=== PATIENT | male | born 1985 | race Caucasian/White ===

== ENCOUNTER 2017-06-17 18:20 | Emergency (ER) | payer OTHER, BC ==
[~2017-06-17] VITALS: Ht 182.9 cm; Wt 97.5 kg
[2017-06-17] MEDS ORDERED: CEPHALEXIN500 MG PO (20:54)
[2017-06-17] MEDS ORDERED: NORCO 5-325 TA1 EACH PO (20:54)
== END 2017-06-17 21:03 | disposition home or self-care (01) ==
LOC: ED 18:20
PROC: 0HQKXZZ Repair Right Lower Leg Skin, External Approach (ICD-10-PCS; principal; 2017-06-17)
DX: S81.011A Laceration without foreign body, right knee, initial encounter (principal); F17.200 Nicotine dependence, unspecified, uncomplicated; W22.8XXA Striking against or struck by other objects, initial encounter; Y99.0 Civilian activity done for income or pay
CPT/HCPCS: 12002; 90715; 96372; 99283